=== PATIENT | female | born 1970 | race Caucasian/White ===

== ENCOUNTER 2017-08-03 17:58 | Inpatient (IN) ==
[2017-08-03 18:37] LABS: Bilirubin,Urine Negative (Negative); Blood,Urine Negative (Negative); Clarity,Urine Cloudy (Clear); Color,Urine Yellow (Yellow); Glucose,Urine (UA) Normal (Normal); Ketones,Urine Negative (Negative); Leukocyte Esterase,Urine Trace (Negative); Nitrite,Urine Negative (Negative); Protein,Urine Negative (Neg-Trace); Urobilinogen,Urine Normal (Normal)
[2017-08-03 18:39] LABS: Bacteria,Urine Moderate per hpf (None-Few); Hyaline Casts,Urine None Seen per lpf (None-Few); Squamous Epithelial Cell,Urine Many per lpf (None-Few)
[2017-08-03 18:47] LABS: Basophils % 0.5 %; Eosinophils % 0.2 %; Hematocrit 40.6 % (35.3-44.9); Hemoglobin 13.9 g/dL (11.5-15.4); Immature Granulocytes % 0.2 % (0-4); Lymphocytes # 1.9 K/mcL (0.6-4.6); Lymphocytes % 45.9 %; Mean Corpuscular HGB Conc 34.2 g/dL (31.6-35.5); Mean Corpuscular Hemoglobin 30.2 pg (28.0-33.3); Mean Corpuscular Volume 88.1 fL (83.0-100.0); Mean Platelet Volume 9.6 fL (9.4-12.4); Monocytes # 0.6 K/mcL (0.0-1.3); Monocytes % 14.3 %; Neutrophils # 1.6 K/mcL (1.6-8.9); Platelet Count 190 K/mcL (140-400); Red Blood Count 4.61 M/mcL (3.82-4.97); Red Cell Distribution Width 12.7 % (11.5-14.5); Segmented Neutrophils % 38.9 %
[2017-08-03 19:02] LABS: Albumin 3.4 g/dL (3.5-5.0); Albumin/Globulin Ratio 0.9 (1.1-2.2); Amylase 90 Units/L (25-125); Bilirubin,Total 0.4 mg/dL (0.2-1.2); Calcium 9.2 mg/dL (8.6-10.8); Globulin 3.9 g/dL (2.4-3.5); Lipase 63 Units/L (8-78); Potassium 3.6 mEq/L (3.5-4.5); Total Protein 7.3 g/dL (6.0-8.3)
--- NOTE | 2017-08-03 19:54 | Emergency Department Note ---
Disposition Clinical Impression: Acute kidney injury, Dehydration, Hypotension, Vomiting, Diarrhea, Abnormal urinalysis Disposition: Admitted As Inpatient Referrals: Ingris Acosta MD [Primary Care Provider] - Forms: ED Satisfaction Letter General Adult HPI - General Chief complaint: ED Nausea/Vomiting/Diarrhea Stated complaint: N/V/D Source: patient Limitations: no limitations - History of Present Illness HPI Narrative: 47-year-old female reports emergency department complaining of persistent vomiting and diarrhea. The patient recently traveled to [place]. There is no history of bloody emesis or stool. The patient denies anticoagulant medication. There is no history of abdominal pain or flank pain no bloody urine vaginal discharge or bleeding. The patient denies any acute chest pain or radha shortness of breath. She has been weak and been laying in bed. The patient has had a fever she reports. There is no history of rash convulsions or confusion she has had a headache but no history of head trauma or difficulty moving the arms or legs independently. No slurred speech or unilateral arm weakness or numbness. The patient is felt very weak. She has not passed out. Per report the patient went to urgent care and then came to the ED for evaluation. Pain Scale: 5 - Related Data Home Medications Medication Instructions Recorded Confirmed CarBAMazepine [Tegretol] 200 mg PO DAILY 08/08/15 08/03/17 Lisinopril [Zestril] 20 mg PO DAILY 08/08/15 08/03/17 Acetaminophen [Tylenol] 500 mg PO Q4H PRN 08/03/17 08/03/17 Aspirin 650 mg PO DAILY PRN 08/03/17 08/03/17 Aspirin Enteric Coated [Aspirin EC] 81 mg PO DAILY 08/03/17 08/03/17 Famotidine [Pepcid] 20 mg PO BID 08/03/17 08/03/17 Trazodone HCl 100 mg PO HS 08/03/17 08/03/17 Allergies Allergy/AdvReac Type Severity Reaction Status Date / Time No Known Allergies Allergy Unverified 08/03/17 18:02 All systems ED: reviewed and negative except as stated. Past Medical History - Past Medical History Medical history: Reports: cancer, hypertension, renal disease, seizures Surgical history: Reports: appendectomy Psychiatric history: Reports: anxiety [employer] history: Reports: bilateral tubal ligation - Social History Smoking Status: Never smoker Smokeless Tobacco Status: No Alcohol use: Reports: none Drug use: Reports: none Physical Exam - General Limitations: no limitations General appearance: alert, in no apparent distress - Head Head exam: atraumatic, normocephalic, normal inspection - Eye Eye exam: Present: normal appearance, PERRL, EOMI - ENT ENT exam: normal exam, normal oropharynx, TM's normal bilaterally, normal external ear exam - Neck Neck exam: Present: normal inspection, full ROM, trachea midline. Absent: tenderness - Chest Chest inspection: Present: symmetric chest wall rise. Absent: tenderness - Respiratory Respiratory exam: Present: normal lung sounds bilaterally. Absent: respiratory distress, wheezes, accessory muscle use, prolonged expiratory phase - Cardiovascular Cardiovascular exam: Present: regular rate, normal rhythm, normal heart sounds - Abdominal Exam Abdominal exam: Present: soft, Non-Tender, normal bowel sounds. Absent: tenderness, distention, guarding, rebound, rigidity, Pfeiffer's sign, Rovsing's sign, tenderness at McBurney's Point, pulsatile mass - Extremities Exam Extremities exam: Present: normal inspection, full ROM, normal capillary refill. Absent: tenderness, pedal edema, joint swelling, calf tenderness - Expanded Lower Extremity Exam Neurovascular/Tendon exam: Present: normal capillary refill. Absent: motor deficit, sensory deficit, tendon deficit, extremity cold to touch, pallor - Back Exam Back exam: Present: normal inspection, full ROM. Absent: tenderness, CVA tenderness (R), CVA tenderness (L), vertebral tenderness - Neurological Exam Neurological exam: Present: alert, oriented X3, CN II-XII intact. Absent: motor sensory deficit - Psychiatric Psychiatric exam: Present: normal affect, normal mood - Skin Skin exam: Present: warm, dry, intact, normal color. Absent: rash, cyanosis, diaphoresis, erythema, pallor, mottled Course Vital Signs Temperature 98.2 F 08/03/17 18:12 Pulse Rate 88 08/03/17 18:12 Respiratory Rate 20 08/03/17 18:12 Blood Pressure 80/59 08/03/17 18:12 O2 Sat by Pulse Oximetry 97 08/03/17 18:12 Temperature 98.2 F 08/03/17 18:12 Pulse Rate 84 08/03/17 21:28 Respiratory Rate 18 08/03/17 21:28 Blood Pressure 95/61 08/03/17 21:28 O2 Sat by Pulse Oximetry 98 08/03/17 21:28 Oxygen Delivery Oxygen Delivery Room Air Medical Decision Making - MDM Narrative Medical decision making narrative: The patient's recent creatinine was normal, she has significant elevation at this time associated with hypotension with recurrent vomiting and diarrhea. I ordered initial 2000 mL of IV fluid, subsequently 1 L. The patient was given Zofran. They started her acute kidney injury, apparent dehydration, recurrent vomiting and diarrhea, as well as hypotension, and a potential urinary tract infection, I thought it appropriate to admit the patient to hospital. The patient appears to be stable at this time. Rocephin was given IV. I discussed the case with the hospitalist on-call who has accepted the patient to their care. - Lab Data Lab results reviewed: Yes I reviewed the patient's lab results. Result diagrams: 08/03/17 18:40 08/03/17 18:40 Lab Results 08/03/17 08/03/17 08/03/17 Range/Units 18:10 18:10 18:40 WBC 4.1 L (4.3-11.1) K/mcL RBC 4.61 (3.82-4.97) M/mcL Hgb 13.9 (11.5-15.4) g/dL Hct 40.6 (35.3-44.9) % MCV 88.1 (83.0-100.0) fL MCH 30.2 (28.0-33.3) pg MCHC 34.2 (31.6-35.5) g/dL RDW 12.7 (11.5-14.5) % Plt Count 190 (140-400) K/mcL MPV 9.6 (9.4-12.4) fL Immature Gran % 0.2 (0-4) % Seg Neutrophils % 38.9 % Lymphocytes % 45.9 % Monocytes % 14.3 % Eosinophils % 0.2 % Basophils % 0.5 % Neutrophils # 1.6 (1.6-8.9) K/mcL Lymphocytes # 1.9 (0.6-4.6) K/mcL Monocytes # 0.6 (0.0-1.3) K/mcL Eosinophils # 0.0 (0.0-0.6) K/mcL Basophils # 0.0 (0.0-0.2) K/mcL Sodium (136-145) mEq/L Potassium (3.5-4.5) mEq/L Chloride (98-109) mEq/L Carbon Dioxide (19-29) mEq/L BUN (7-20) mg/dL Creatinine (0.57-1.11) mg/dL Est GFR ( Amer) (> 60) Est GFR (Non-Af Amer) (> 60) BUN/Creatinine Ratio (6-26) Glucose (70-99) mg/dL Calculated Osmolality (280-300) Calcium (8.6-10.8) mg/dL Total Bilirubin (0.2-1.2) mg/dL AST (5-34) Units/L ALT (0-55) Units/L Alkaline Phosphatase (38-126) Units/L C-Reactive Protein (Less than 5) mg/L Serum Total Protein (6.0-8.3) g/dL Albumin (3.5-5.0) g/dL Globulin (2.4-3.5) g/dL Albumin/Globulin Ratio (1.1-2.2) Amylase (25-125) Units/L Lipase (8-78) Units/L Urine Color Yellow (Yellow) Urine Clarity Cloudy A (Clear) Urine pH 6.0 (5.0-8.0) pH Units Ur Specific [place] 1.020 (1.010-1.025) Urine Protein Negative (Neg-Trace) mg/dL Urine Glucose (UA) Normal (Normal) mg/dL Urine Ketones Negative (Negative) mg/dL Urine Blood Negative (Negative) Urine Nitrite Negative (Negative) Urine Bilirubin Negative (Negative) Urine Urobilinogen Normal (Normal) mg/dL Ur Leukocyte Esterase Trace H (Negative) Urine Microscopic RBC 3-5 H (0-3) per hpf Urine Microscopic WBC 5-15 H (0-3) per hpf Ur Squamous Epith Cells Many H (None-Few) per lpf Urine Bacteria Moderate H (None-Few) per hpf Hyaline Casts None Seen (None-Few) per lpf Ur Culture Indicated? YES A (NO) Urine Test Negative (Negative) 08/03/17 08/03/17 08/03/17 Range/Units 18:40 18:40 18:40 WBC (4.3-11.1) K/mcL RBC (3.82-4.97) M/mcL Hgb (11.5-15.4) g/dL Hct (35.3-44.9) % MCV (83.0-100.0) fL MCH (28.0-33.3) pg MCHC (31.6-35.5) g/dL RDW (11.5-14.5) % Plt Count (140-400) K/mcL MPV (9.4-12.4) fL Immature Gran % (0-4) % Seg Neutrophils % % Lymphocytes % % Monocytes % % Eosinophils % % Basophils % % Neutrophils # (1.6-8.9) K/mcL Lymphocytes # (0.6-4.6) K/mcL Monocytes # (0.0-1.3) K/mcL Eosinophils # (0.0-0.6) K/mcL Basophils # (0.0-0.2) K/mcL Sodium 133 L (136-145) mEq/L Potassium 3.6 (3.5-4.5) mEq/L Chloride 100 (98-109) mEq/L Carbon Dioxide 21 (19-29) mEq/L BUN 38 H (7-20) mg/dL Creatinine 2.01 H (0.57-1.11) mg/dL Est GFR ( Amer) 32 L (> 60) Est GFR (Non-Af Amer) 26 L (> 60) BUN/Creatinine Ratio 19 (6-26) Glucose 99 (70-99) mg/dL Calculated Osmolality 285 (280-300) Calcium 9.2 (8.6-10.8) mg/dL Total Bilirubin 0.4 (0.2-1.2) mg/dL AST 92 H (5-34) Units/L ALT 79 H (0-55) Units/L Alkaline Phosphatase 104 (38-126) Units/L C-Reactive Protein 18 H (Less than 5) mg/L Serum Total Protein 7.3 (6.0-8.3) g/dL Albumin 3.4 L (3.5-5.0) g/dL Globulin 3.9 H (2.4-3.5) g/dL Albumin/Globulin Ratio 0.9 L (1.1-2.2) Amylase 90 (25-125) Units/L Lipase 63 (8-78) Units/L Urine Color (Yellow) Urine Clarity (Clear) Urine pH (5.0-8.0) pH Units Ur Specific [place] (1.010-1.025) Urine Protein (Neg-Trace) mg/dL Urine Glucose (UA) (Normal) mg/dL Urine Ketones (Negative) mg/dL Urine Blood (Negative) Urine Nitrite (Negative) Urine Bilirubin (Negative) Urine Urobilinogen (Normal) mg/dL Ur Leukocyte Esterase (Negative) Urine Microscopic RBC (0-3) per hpf Urine Microscopic WBC (0-3) per hpf Ur Squamous Epith Cells (None-Few) per lpf Urine Bacteria (None-Few) per hpf Hyaline Casts (None-Few) per lpf Ur Culture Indicated? (NO) Urine Test (Negative) - Radiology Data Radiology results reviewed: Yes I reviewed the patient's radiology results.
[2017-08-03] MEDS ORDERED: 0.9 % Sodium Chloride 1,000 ML IVC ONE (21:12)
[2017-08-03] MEDS ORDERED: Ondansetron 4 MG/2 ML VIAL IVP ONE (21:13)
[2017-08-03] MEDS: 0.9 % Sodium Chloride 1,000 ML IVC SCH ×2 (21:49→23:51)
[2017-08-04] MEDS ORDERED: Acetaminophen 325 MG TABLET PO PRN (00:27)
[2017-08-04] MEDS ORDERED: Ondansetron 4 MG/2 ML VIAL IVP PRN (00:27)
[2017-08-04] MEDS ORDERED: Naloxone 0.4 MG/ML INJ IVP PRN (00:27)
[2017-08-04] MEDS ORDERED: *HR* Morphine 2 MG/ML SYRINGE IVP PRN (00:27)
[2017-08-04] MEDS ORDERED: 0.9 % Sodium Chloride 1,000 ML IVC SCH (00:45)
[2017-08-04] MEDS: Pantoprazole 40 MG VIAL IVP SCH ×2 (01:00→07:58)
--- NOTE | 2017-08-04 01:10 | Internal Med History&Physical ---
Date of Encounter: 08/04/17 Time of Encounter: 01:45 Assessment and Plan (1) Acute gastroenteritis Current visit: Yes Status: Acute Acute Gastroenteritis - causing abdominal pain, vomiting and diarrhea - with SONDRA Continue IV fluids, empiric IV Flagyl, IV Cipro, IV Zofran, IV Protonix Probable UTI - present on admission C. difficile - pending Stool studies - pending Chest x-ray - no acute process UA - trace leukocyte esterase WBC - 4.1 CRP - 18.0 Lactic acid - 1.8 Cultures - pending Cardiac telemetry, labs in a.m., monitor closely (2) Acute kidney injury Current visit: Yes Status: Acute Acute Kidney Injury on CKD stage III - likely secondary to volume depletion and dehydration Continue IV fluids, labs in a.m. Nephrology consult if renal function worsens (3) Hypertension Current visit: Yes Status: Chronic Essential hypertension, controlled, monitor Hold Lisinopril in view of hypotension Qualifiers: Hypertension type: essential hypertension Qualified Code(s): I10 - Essential (primary) hypertension (4) Anxiety Current visit: Yes Status: Chronic Chronic anxiety with probable depression Continue home dose of Trazodone (5) Seizure disorder Current visit: Yes Status: Chronic History of seizure disorder, stable Continue home dose of Tegretol (6) DVT prophylaxis Current visit: Yes Status: Acute Continue heparin subcutaneous Internal Medicine - H&P: HPI Chief complaint: Abdominal pain, vomiting, diarrhea Admitted From: Emergency Dept Plans for Post Hospital Care: Home History of present illness: Ms. Martel is a 47 year old female with past medical history of hypertension, seizures, anxiety and chronic kidney disease. Patient presents to ED with complaints of abdominal pain, vomiting and diarrhea. Examined in the room. Patient is awake and alert. Not in any distress. Vital history. No family members at bedside. Patient states her symptoms started about 2-3 days ago. She complains of abdominal pain with worsening diarrhea and worsening vomiting and nausea. She states her symptoms are somewhat better at this time. States she had fever. She denies blood in stool and denies dark- colored stool. She denies chest pain or shortness of breath or palpitations. Complains of associated generalized weakness. Patient states she was recently in [place] and returned a few weeks ago. Patient states she is unable to keep any food down. Symptoms are worse with food intake. No alleviating factors. No other associated symptoms. Initial workup in the ED is significant for elevated creatinine and leukocyte esterase and urine. No other acute findings. Patient is being admitted for acute gastroenteritis and dehydration. She has been explained about her condition and plan of care. She understood and agreed. No unanswered questions. CODE STATUS full code. Past Med Surg Social Fam HX - Past Medical History Medical history: cancer, hypertension, renal disease Psychiatric history: anxiety - Past Surgical History Surgical History: appendectomy - Social History Smoking Status: Never smoker Smokeless Tobacco Status: No Alcohol use: none Drug use: none - Family History Father Adopted: [place]: ANGEL Family Member Ethnicity: Non- Living Status: Age at : 64 Cause of : HI Hx Family Cardiac Disorders: Yes Hx Family Respiratory Disorders: No Hx Family Cancer: No Hx Family GI Disorders: No Hx Family Genitourinary Disorders: No Hx Family Endocrine Disorder: Yes (DM) Hx Family Musculoskeletal Disorders: No Hx Family Neuromuscular Disorders: No Hx Family Neurologic Disorders: No Hx Family HEENT Disorders: No Hx Family Autoimmune Disorders: No Hx Family Reproductive Disorders: No Hx Family Psychosocial Disorders: No Hx Family Medical Disorders: No Internal Medicine - H&P: Meds CarBAMazepine [Tegretol] 200 mg PO DAILY 08/08/15 [History] Lisinopril [Zestril] 20 mg PO DAILY 08/08/15 [History] Acetaminophen [Tylenol] 500 mg PO Q4H PRN 08/03/17 [History] Aspirin 650 mg PO DAILY PRN 08/03/17 [History] Aspirin Enteric Coated [Aspirin EC] 81 mg PO DAILY 08/03/17 [History] Famotidine [Pepcid] 20 mg PO BID 08/03/17 [History] Trazodone HCl 100 mg PO HS 08/03/17 [History] 3 Allergy/AdvReac Type Severity Reaction Status Date / Time No Known Allergies Allergy Unverified 08/03/17 18:02 All Systems PM: A 10-system review of systems was performed and is negative for pertinent findings except as documented above in the HPI. - Constitutional Constitutional: fatigue, fever(s), weakness - EENT Eyes: no blurry vision - Cardiovascular Cardiovascular ROS IM: no chest pain, no diaphoresis, no dyspnea, no dyspnea on exertion, no edema, no lightheadedness, no orthopnea, no palpitations, no syncope - Respiratory Respiratory: no cough, no dyspnea, no hemoptysis, no dyspnea on exertion, no wheezing, no chest congestion - Gastrointestinal Gastrointestinal: abdominal pain, cramping, diarrhea, nausea, vomiting, no bloating, no heartburn, no hematemesis, no hematochezia - Genitourinary Genitourinary: no dysuria - Musculoskeletal Musculoskeletal ROS IM: no back pain - Neurological Neurological ROS: no abnormal gait, no confusion, no dizziness, no focal weakness, no loss of vision, no numbness, no tingling - Constitutional Vitals: Temp Pulse Resp BP Pulse Ox 98.3 F 74 12 98/66 98 08/03/17 23:41 08/03/17 23:41 08/03/17 23:41 08/03/17 23:41 08/03/17 23:41 General appearance: Present: cooperative, A&O X 3, pleasant, no acute distress, obese, answers questions appropriately - Head Head exam: Present: atraumatic - Eye Eye exam: Present: EOMI - ENT ENT exam: Present: mucous membranes dry - Respiratory Respiratory exam: Present: CTAB. Absent: chest wall tenderness, rales, rhonchi , wheezes, tachypnea - Cardiovascular Cardiovascular exam: Present: RRR, +S1, +S2 - GI/Abdominal GI/Abdominal exam: Present: soft, tenderness (Mild epigastric tenderness and periumbilical tenderness), no peritoneal signs. Absent: distended, firm, guarding - Extremities Exam Extremities exam: Present: radial pulses palpable and symmetrical. Absent: calf tenderness, cyanotic, pedal edema - Neurological Exam Neurological exam: Present: alert, oriented X3, no focal deficits. Absent: facial droop, speech deficit Internal Med - H&P Results - Labs CBC & Chem 7: 08/03/17 18:40 08/03/17 18:40
[2017-08-04 04:32] LABS: Basophils % 0.4 %; Hematocrit 33.3 % (35.3-44.9); Immature Granulocytes % 0.4 % (0-4); Lymphocytes # 1.1 K/mcL (0.6-4.6); Lymphocytes % 43.1 %; Mean Corpuscular HGB Conc 34.2 g/dL (31.6-35.5); Mean Corpuscular Hemoglobin 30.2 pg (28.0-33.3); Mean Corpuscular Volume 88.3 fL (83.0-100.0); Mean Platelet Volume 10.1 fL (9.4-12.4); Monocytes # 0.3 K/mcL (0.0-1.3); Monocytes % 13.4 %; Neutrophils # 1.1 K/mcL (1.6-8.9); Platelet Count 143 K/mcL (140-400); Red Blood Count 3.77 M/mcL (3.82-4.97); Red Cell Distribution Width 12.6 % (11.5-14.5); Segmented Neutrophils % 42.7 %
[2017-08-04 04:34] LABS: Hemoglobin 11.4 g/dL (11.5-15.4)
[2017-08-04 04:40] LABS: INR 1.1; Prothrombin Time 11.8 Seconds (9.4-12.1)
[2017-08-04 04:45] LABS: Calcium 7.9 mg/dL (8.6-10.8); Magnesium 1.8 mg/dL (1.6-2.6); Potassium 3.5 mEq/L (3.5-4.5)
[2017-08-04] MEDS ORDERED: *HR* Heparin 5,000 UNIT/ML VIAL SQ SCH (06:00)
[2017-08-04] MEDS ORDERED: MetroNIDAZOLE 500 MG/100 ML 500 MG/100 ML BAG IVPB SCH (08:00)
[2017-08-04] MEDS ORDERED: Aspirin Enteric Coated 81 MG Tablet PO SCH (09:00)
[2017-08-04] MEDS ORDERED: carBAMazepine 200 MG TABLET PO SCH (09:00)
[2017-08-04 15:25] VITALS: BP 104/69
--- NOTE | 2017-08-04 15:35 | Discharge Summary ---
Date of Encounter: 08/04/17 Time of Encounter: 15:32 - Discharge Diagnosis (1) Acute gastroenteritis Priority: Primary Status: Acute Comments: Uncertain etiology. Most likely viral in nature. No longer having any diarrhea. No nausea or vomiting. Will complete empiric antibiotic course. (2) Acute kidney injury Priority: Secondary Status: Acute (3) Anxiety Priority: Secondary Status: Chronic (4) Hypertension Priority: Secondary Status: Chronic Qualifiers: Hypertension type: essential hypertension Qualified Code(s): I10 - Essential (primary) hypertension (5) Seizure disorder Priority: Secondary Status: Chronic (6) DVT prophylaxis Priority: Secondary Status: Acute (7) Leukopenia Priority: Secondary Status: Acute Comments: Patient has leukopenia with absolute neutrophil count of 1100. This could be due to related to carbamazepine use. Qualifiers: Leukopenia type: neutropenia Neutropenia type: unspecified Qualified Code (s): D70.9 - Neutropenia, unspecified - Discharge Medications Prescriptions: Cefdinir [Omnicef] 300 mg PO BID #10 capsule metroNIDAZOLE [Flagyl] 500 mg PO TID #15 tablet Home Medications: CarBAMazepine [Tegretol] 200 mg PO DAILY 08/08/15 [History] Lisinopril [Zestril] 20 mg PO DAILY 08/08/15 [History] Acetaminophen [Tylenol] 500 mg PO Q4H PRN 08/03/17 [History] Aspirin 650 mg PO DAILY PRN 08/03/17 [History] Aspirin Enteric Coated [Aspirin EC] 81 mg PO DAILY 08/03/17 [History] Famotidine [Pepcid] 20 mg PO BID 08/03/17 [History] Trazodone HCl 100 mg PO HS 08/03/17 [History] Cefdinir [Omnicef] 300 mg PO BID #10 capsule 08/04/17 [Rx] metroNIDAZOLE [Flagyl] 500 mg PO TID #15 tablet 08/04/17 [Rx] Allergies/Adverse Reactions: 3 Allergy/AdvReac Type Severity Reaction Status Date / Time No Known Allergies Allergy Unverified 08/03/17 18:02 Procedures/tests Complete & Pending: Procedures Performed prior 72 hours Category Date Time Status EKG [ECG 12 lead ECG] [ECG] Routine Y 08/04/17 00:33 Ordered - Notes to Outpatient Provider Patient does have leukopenia. She came with WBC count of 4.1. Her WBC count today is 2.5. She is mainly neutropenic with ANC of 1100. Could be related to carbamazepine use. Would recommend changing to a different medication in conjunction with her primary care provider and neurologist. Date of admission: 08/04/17 00:27 Primary care physician: Ingris Acosta MD Discharging clinician: Martin Rios Anticipated date of discharge: 08/04/17 - Patient Status Disposition: Home, Self-Care Condition: Good Functional capacity at discharge: independent ambulation Overall status at discharge: patient is progressing back to baseline - Discharge Instructions Instructions: Gastroenteritis (DC) Follow Up With: Ingris Acosta MD [Primary Care Provider] - (In 1-2 weeks) - Diet and Activity Activity: as per physical therapy Diet: advance to your usual diet, low fat, low cholesterol, low salt diet Hospital course: Ms. Martel is a 47 year old female patient with history of essential hypertension, anxiety disorder, chronic kidney disease and seizure disorder hospitalized here with acute abdominal pain which began about 4 days back. She was also having nausea and vomiting along with diarrhea. She had recently traveled tomorrow, and returned a few weeks back. She was found to have acute worsening of renal function and was diagnosed with gastroenteritis. She was treated for this empirically with IV fluids and antibiotics. Stool samples were not able to be obtained as patient did not have any further episodes of diarrhea here. Presently, patient is doing much better and is no longer having any nausea or vomiting. Her abdominal pain has also resolved. As such she is stable to be discharged home. Given her recent travel, she will be discharged home on empiric antibiotics. She is advised to return to the ER if her symptoms worsen. Patient does have leukopenia. She came with WBC count of 4.1. Her WBC count today is 2.5. She is mainly neutropenic with ANC of 1100. Could be related to carbamazepine use. Would recommend changing to a different medication in conjunction with her primary care provider and neurologist. - Time Spent with Patient Total time spent providing and/or coordinating discharge services: Less than 30 minutes (25 min) - Constitutional Vitals: Temp Pulse Resp BP Pulse Ox 98.3 F 80 16 104/69 97 08/04/17 15:24 08/04/17 15:24 08/04/17 15:24 08/04/17 15:24 08/04/17 15:24 General appearance: Present: cooperative, A&O X 3, pleasant, no acute distress, obese, answers questions appropriately - Respiratory Respiratory exam: Present: CTAB. Absent: accessory muscle use, rales, rhonchi, wheezes - Cardiovascular Cardiovascular exam: Present: RRR, +S1, +S2. Absent: diastolic murmur, gallop, rubs, systolic murmur - GI/Abdominal GI/Abdominal exam: Present: normal bowel sounds, soft, no peritoneal signs. Absent: distended, tenderness - Extremities Exam Extremities exam: Present: warm, radial pulses palpable and symmetrical. Absent : calf tenderness, cyanotic, pedal edema
[2017-08-04] MEDS ORDERED: traZODone 50 MG TABLET PO SCH (21:00)
== END 2017-08-04 18:20 | disposition home or self-care (01) | DRG 249 ==
LOC: 3BNU 17:58 → EMEROO 17:58 → 3BNU 23:18 → SUATTDRO 08-04 00:27
PROVIDERS: ADMIT Hospitalist; ATTEND Internal Medicine